=== PATIENT | female | born 1945 | race Two or more races ===

== ENCOUNTER 2019-02-09 00:05 | Emergency (ER) | payer MEDICARE, MEDICAID ==
[~2019-02-09] VITALS: Ht 152.4 cm; Wt 68.2 kg
[~2019-02-09 00:05] MED LIST: AMLO-511 PO; aspirin PO
[2019-02-09] MEDS ORDERED: LISI-661 PO (01:34)
[2019-02-09] MEDS ORDERED: MECLIZINE HCL 25 MG TABLET PO ONE (02:30)
[2019-02-09] MEDS ORDERED: LISINOPRIL 10 MG TABLET PO ONE (02:30)
[2019-02-09] MEDS ORDERED: ONDANSETRON HCL 4 MG TABLET PO ONE (02:30)
[2019-02-09] MEDS ORDERED: ACETAMINOPHEN 500 MG TABLET PO ONE (02:30)
[2019-02-09 02:47] LABS: BASOPHILS % (AUTO) 0.6 % (0.0-2.0); EOSINOPHILS % (AUTO) 1.6 % (1.0-6.0); HEMATOCRIT 34.1 % (36-46); HEMOGLOBIN 10.7 g/dL (12.0-16.0); LYMPHOCYTES # (AUTO) 1.8 K/uL (1.0-4.8); LYMPHOCYTES % (AUTO) 22.4 % (22.0-44.0); MEAN CORPUSCULAR HEMOGLOBIN 21.8 pg (26.0-34.0); MEAN CORPUSCULAR HGB CONC 31.3 G/dL (31.0-37.0); MEAN CORPUSCULAR VOLUME 70 fL (80-100); MONOCYTES # (AUTO) 0.7 K/uL (0.1-1.0); MONOCYTES % (AUTO) 8.3 % (2.0-9.0); NEUTROPHILS # (AUTO) 5.4 K/uL (1.8-7.7); NEUTROPHILS % (AUTO) 67.1 % (40.0-70.0); PLATELET COUNT (AUTO) 275 K/uL (150-450); RED CELL DISTRIBUTION WIDTH 13.9 % (11.5-14.5)
[2019-02-09 02:56] LABS: CALCIUM, TOTAL 9.8 mg/dL (8.8-10.5); CREATININE 0.95 mg/dL (0.60-1.30); POTASSIUM 3.9 mmol/L (3.5-5.1)
[2019-02-09 03:01] LABS: ALBUMIN 3.8 g/dL (3.4-5.0); BILIRUBIN,TOTAL 0.5 mg/dL (0.1-1.0); TOTAL PROTEIN, SERUM 7.8 g/dL (6.4-8.2)
[2019-02-09 03:22] VITALS: BP 185/83
== END 2019-02-09 03:33 | disposition home or self-care (01) ==
LOC: EMS 00:05
DX: I10 Essential (primary) hypertension (principal); R42 Dizziness and giddiness; Z90.710 Acquired absence of both cervix and uterus
CPT/HCPCS: 36415; 80053; 84484; 85025; 93005; 99284; Q0162

== ENCOUNTER 2019-02-16 22:04 | Emergency (ER) | payer MEDICARE, MEDICAID ==
[~2019-02-16] VITALS: Ht 152.4 cm; Wt 63.6 kg
[~2019-02-16 22:04] MED LIST changes: -AMLO-511 PO; +LISI-661 PO; -aspirin PO
[2019-02-16] MEDS ORDERED: LISI-662 PO (22:40)
[2019-02-17] MEDS ORDERED: CloNIDine HCL 0.2 MG TABLET PO ONE (02:00)
[2019-02-17 02:22] VITALS: BP 168/90
== END 2019-02-17 02:21 | disposition home or self-care (01) ==
LOC: EMS 22:05
DX: I10 Essential (primary) hypertension (principal); Z90.710 Acquired absence of both cervix and uterus; Z79.899 Other long term (current) drug therapy; Z98.890 Other specified postprocedural states
CPT/HCPCS: 93005